=== PATIENT | female | born 1980 | race Caucasian/White ===

== ENCOUNTER 2017-05-23 16:11 | Emergency (ER) | payer OTHER ==
[~2017-05-23] VITALS: Ht 175.3 cm; Wt 79.4 kg
[2017-05-23] MEDS ORDERED: Zofran Odt4 MG SL (16:56)
[2017-05-23] MEDS ORDERED: IMODIUM A-D2 M1 PO (16:56)
== END 2017-05-23 18:04 | disposition home or self-care (01) ==
LOC: ER 16:11
DX: R11.10 Vomiting, unspecified (principal); F17.200 Nicotine dependence, unspecified, uncomplicated
CPT/HCPCS: 36415; 96361; 96374; 99283; J2405; J7030

== ENCOUNTER → 2019-08-08 | Outpatient (CLI) | payer SELFPAY ==
[~2019-08-08] MED LIST: IMODIUM A-D2 M1 PO; Zofran Odt4 MG SL
== END ==
LOC: PLD 13:46 → LAB SHORT 13:46
DX: L30.9 Dermatitis, unspecified (principal); L98.8 Other specified disorders of the skin and subcutaneous tissue
CPT/HCPCS: 87220

== ENCOUNTER → 2023-02-19 | Outpatient (CLI) | payer BC ==
[2023-02-20 11:35] LABS: Candida species (DNA Probe) Negative (NEGATIVE); G. vaginalis (DNA Probe) Negative (NEGATIVE); T. vaginalis (DNA Probe) Negative (NEGATIVE)
== END ==
LOC: LAB 17:00 → LAB SHORT 17:00
PROVIDERS: Registered Nurse Community Health
DX: R30.0 Dysuria (principal); L29.2 Pruritus vulvae
CPT/HCPCS: 87086; 87480; 87510; 87660